=== PATIENT | female | born 1990 | race African-American/Black ===

== ENCOUNTER 2018-09-20 02:47 | Emergency (ER) | payer OTHER ==
[~2018-09-20] VITALS: Ht 167.6 cm; Wt 140.6 kg
[2018-09-20 03:06] LABS: URINE BILIRUBIN NEGATIVE (Negative); URINE BLOOD 3+ (Negative); URINE CLARITY CLEAR; URINE COLOR YELLOW; URINE GLUCOSE-RANDOM* NEGATIVE (Negative); URINE KETONES NEGATIVE (Negative); URINE LEUKOCYTES-REFLEX NEGATIVE (Negative); URINE NITRITE-REFLEX NEGATIVE (Negative); URINE PROTEIN (DIPSTICK) NEGATIVE (Negative); URINE SPECIFIC GRAVITY 1.015 (1.005-1.035); URINE UROBILINOGEN 0.2 E.U./dl (0.2-1.0)
[2018-09-20 03:25] LABS: SSA (PROTEIN CONFIRMATORY) TRACE (APPROX. 5) mg/dL (Negative)
[2018-09-20 03:26] LABS: BACTERIA-REFLEX None Seen /HPF (None Seen); CASTS None Seen /LPF (None Seen); CRYSTALS None Seen /LPF (None Seen); MUCUS 0-3 Light strn/LPF (None Seen); SQUAMOUS 0-3 Few /LPF (0-3); URINE WBC-REFLEX None Seen /HPF (0-5)
[2018-09-20 03:26] LABS: HEMATOCRIT 38.3 % (37.0-47.0); HEMOGLOBIN 12.6 gm/dL (12.0-15.0); MCH 25.8 pg (26.0-34.0); MCHC 32.8 g/dL (28.0-37.0); MCV 78.7 fL (80.0-100.0); RBC 4.87 mil/uL (4.20-5.00); RDW 15.7 % (10.5-14.5); WBC 11.3 thou/uL (4.0-11.0)
[2018-09-20 03:36] LABS: CALCIUM 10.1 mg/dL (8.5-10.1); CREATININE 0.7 mg/dL (0.6-1.0); POTASSIUM 4.7 mmol/L (3.5-5.1)
[2018-09-20 03:41] LABS: ALBUMIN 3.4 g/dL (3.4-5.0); TOTAL BILIRUBIN 0.3 mg/dL (<0.1-1.0); TOTAL PROTEIN 7.6 g/dL (6.4-8.2)
[2018-09-20] MEDS ORDERED: PEPCID20 MG PO (05:34)
[2018-09-20] MEDS ORDERED: ZOFRAN4 MG PO (05:34)
[2018-09-20] MEDS ORDERED: NORCO 5-325 TA1 EACH PO (05:34)
[2018-09-20 05:38] VITALS: BP 133/73
== END 2018-09-20 05:47 | disposition home or self-care (01) ==
LOC: ER 02:47
PROVIDERS: Student in an Organized Health Care Education/Training Program
DX: K80.20 Calculus of gallbladder without cholecystitis without obstruction (principal); R11.2 Nausea with vomiting, unspecified

== ENCOUNTER → 2018-10-15 | Outpatient (CLI) | payer OTHER ==
[~2018-10-15] MED LIST: NORCO 5-325 TA1 EACH PO; PEPCID20 MG PO; ZOFRAN4 MG PO
--- NOTE | 2018-10-18 19:49 | SLE ---
[facility] [place] [address] POLYSOMNOGRAPHY STUDY Name: ESTEFANI VERONICA Room #: [facility].#: [id number] Admission: 10/15/18 ������������������ Attend Phys: Landon Luna MD Discharge: ������������������ Date of : 86 Report #: [id number] THIS REPORT FOR: //name// CC: Landon Parra MD DATE OF SERVICE: 10/15/2018 ATTENDING PHYSICIAN: Dr. Jeronimo Parra. The patient is 28 years old who weighs 357 pounds with a BMI of 57.6. The patient had a home sleep study previously and was found to have a moderate TAYLOR at an AHI of 25 per hour, with a supine AHI of 26 per hour. The patient also had moderate nocturnal hypoxia. As a result, the patient was referred for in-lab CPAP titration study. During the night study, the patient spent 401 minutes in bed and slept for 371 minutes with an excellent sleep efficiency of 92%. Sleep latency was 21.7 minutes, with a REM latency of 250. Sleep architecture showed normal N1 and N2 sleep , increase N3 sleep and reduce REM sleep. PLM index was 6.6/hr without any significant EEG arousals. EKG monitoring revealed an average heart rate of 81 beats / min. No sustained arrthymias seen. The patient was started on a CPAP pressure of 6 cm of water and titrated up to 15 cm water. At the final pressure of 15 cm water, the patient slept for 40 minutes, 3 minutes of REM sleep. No supine sleep was seen. The patient's AHI was reduced to 0 per hour. At a lower pressure, the patient also did very well. At 14 cm water, the patient had 51 minutes of sleep with both supine REM sleep seen. The patient's AHI was 2.3 per hour and oxygen saturation remained above 91%. This was the optimum therapeutic pressure. IMPRESSION: 1. Sleep apnea diagnosed by home sleep study. 2. No clinically significant periodic limb movements. RECOMMENDATIONS: 1. CPAP at 14 cm water completely eliminated the patient's sleep apnea and should be used on a nightly basis. 2. Follow up in 4-6 weeks to assess compliance with CPAP and to document clinical improvement. 3. Weight loss is strongly advised. [facility] [address] [place] [address] POLYSOMNOGRAPHY STUDY Name: ESTEFANI VERONICA Room #: [facility].#: [id number] Admission: 10/15/18 ������������������ Attend Phys: Landon Luna MD Discharge: ������������������ Date of : 86 Report #: [id number] 4. Avoid [employer] depressants. 5. Cautioned regarding driving until symptoms of sleep apnea resolve with the use of CPAP. ��������������������������������������������� <ELECTRONICALLY SIGNED> ���������������������������������������� By: Landon Luna MD ��������������������������������������������� 10/18/18 1949 [id number] Landon Luna MD /nt
== END ==
LOC: SLEEPLAB 16:55
DX: G47.33 Obstructive sleep apnea (adult) (pediatric) (principal)

== ENCOUNTER 2018-12-16 20:28 | Inpatient (IN) | payer OTHER ==
[~2018-12-16] VITALS: Ht 167.6 cm; Wt 165.4 kg
[2018-12-16 20:29] VITALS: BP 170/86
[2018-12-16 21:11] LABS: ABSOLUTE NEUTROPHILS 7.2 thou/uL (1.4-8.2); BASOPHILS 0.6 % (0.0-2.0); EOSINOPHILS 0.6 % (0.0-3.0); HEMATOCRIT 36.5 % (37.0-47.0); HEMOGLOBIN 11.6 gm/dL (12.0-15.0); LYMPHOCYTES 23.6 % (24.0-44.0); MCH 25.5 pg (26.0-34.0); MCHC 31.8 g/dL (28.0-37.0); MCV 80.1 fL (80.0-100.0); MONOCYTES 9.2 % (1.0-8.0); PLATELET COUNT 284 thou/uL (150-400); RBC 4.56 mil/uL (4.20-5.00); WBC 10.9 thou/uL (4.0-11.0)
[2018-12-16 21:20] LABS: CALCIUM 10.1 mg/dL (8.5-10.1); CREATININE 0.8 mg/dL (0.6-1.0); POTASSIUM 3.7 mmol/L (3.5-5.1)
[2018-12-16 21:26] LABS: ALBUMIN 3.3 g/dL (3.4-5.0); TOTAL BILIRUBIN 0.7 mg/dL (<0.1-1.0); TOTAL PROTEIN 7.5 g/dL (6.4-8.2)
[2018-12-16 23:12] LABS: URINE BILIRUBIN NEGATIVE (Negative); URINE BLOOD 3+ (Negative); URINE CLARITY CLEAR; URINE COLOR YELLOW; URINE GLUCOSE-RANDOM* NEGATIVE (Negative); URINE KETONES 3+ (Negative); URINE LEUKOCYTES-REFLEX TRACE (Negative); URINE NITRITE-REFLEX NEGATIVE (Negative); URINE PROTEIN (DIPSTICK) NEGATIVE (Negative)
[2018-12-16 23:43] LABS: CASTS None Seen /LPF (None Seen); MUCUS None Seen strn/LPF (None Seen); SQUAMOUS 0-3 Few /LPF (0-3); URINE WBC-REFLEX 0-5 Rare /HPF (0-5)
[2018-12-16 23:44] LABS: BACTERIA-REFLEX None Seen /HPF (None Seen); CRYSTALS None Seen /LPF (None Seen); URINE RBC 3-10 Few /HPF (0-2)
[2018-12-17 01:32] VITALS: BP 138/70
[2018-12-17 05:43] VITALS: BP 137/75
[2018-12-17 08:17] VITALS: BP 121/72
[2018-12-17 17:29] VITALS: BP 140/63
[2018-12-17 19:36] VITALS: BP 130/49
[2018-12-18 04:16] VITALS: BP 137/70
[2018-12-18 08:00] VITALS: BP 140/73
[2018-12-18] MEDS ORDERED: AUGMENTIN400 MG/53 PO (11:54)
[2018-12-18 13:10] VITALS: BP 140/73
== END 2018-12-18 14:00 | disposition home or self-care (01) | DRG 205 ==
LOC: ER 20:28 → 4E 12-17 00:37 → EROBS 12-17 00:37 → 4E 12-17 01:25
PROVIDERS: Nurse Practitioner; ADMIT Internal Medicine
DX: J95.89 Other postprocedural complications and disorders of respiratory system, not elsewhere classified (principal); J69.0 Pneumonitis due to inhalation of food and vomit; Z68.43 Body mass index [BMI] 50.0-59.9, adult; Y83.8 Other surgical procedures as the cause of abnormal reaction of the patient, or of later complication, without mention of misadventure at the time of the procedure; R13.10 Dysphagia, unspecified; E86.0 Dehydration; G47.33 Obstructive sleep apnea (adult) (pediatric); E66.01 Morbid (severe) obesity due to excess calories; Z90.49 Acquired absence of other specified parts of digestive tract; Z79.899 Other long term (current) drug therapy
CPT/HCPCS: 10084

== ENCOUNTER 2020-06-26 00:22 | Emergency (ER) | payer OTHER ==
[~2020-06-26] VITALS: Ht 170.2 cm; Wt 122.5 kg
[~2020-06-26 00:22] MED LIST changes: +AUGMENTIN400 MG/53 PO
[2020-06-26] MEDS ORDERED: MOBIC15 MG PO (01:08)
[2020-06-26 01:22] VITALS: BP 136/78
== END 2020-06-26 01:23 | disposition home or self-care (01) ==
LOC: ER 00:22
DX: M25.511 Pain in right shoulder (principal); Z90.49 Acquired absence of other specified parts of digestive tract

== ENCOUNTER 2020-11-24 01:15 | Emergency (ER) | payer OTHER ==
[~2020-11-24] VITALS: Ht 170.2 cm; Wt 123.8 kg
[~2020-11-24 01:15] MED LIST changes: +MOBIC15 MG PO
[2020-11-24 02:07] LABS: URINE BILIRUBIN NEGATIVE (Negative); URINE BLOOD NEGATIVE (Negative); URINE CLARITY CLEAR; URINE COLOR YELLOW; URINE GLUCOSE-RANDOM* NEGATIVE (Negative); URINE KETONES NEGATIVE (Negative); URINE LEUKOCYTES-REFLEX NEGATIVE (Negative); URINE NITRITE-REFLEX NEGATIVE (Negative); URINE PROTEIN (DIPSTICK) NEGATIVE (Negative); URINE UROBILINOGEN 0.2 E.U./dl (0.2-1.0)
[2020-11-24 04:13] LABS: ABSOLUTE NEUTROPHILS 4.9 thou/uL (1.4-8.2); BASOPHILS 0.5 % (0.0-2.0); EOSINOPHILS 1.2 % (0.0-3.0); HEMATOCRIT 35.6 % (37.0-47.0); HEMOGLOBIN 11.3 gm/dL (12.0-15.0); LYMPHOCYTES 41.1 % (24.0-44.0); MCH 26.2 pg (26.0-34.0); MCHC 31.7 g/dL (28.0-37.0); MCV 82.5 fL (80.0-100.0); MONOCYTES 9.7 % (1.0-8.0); PLATELET COUNT 248 thou/uL (150-400); POLYS 47.5 % (36.0-66.0); RBC 4.32 mil/uL (4.20-5.00); RDW 13.8 % (10.5-14.5); WBC 10.3 thou/uL (4.0-11.0)
[2020-11-24 04:16] LABS: CALCIUM 9.3 mg/dL (8.5-10.1); CREATININE 0.8 mg/dL (0.6-1.0); POTASSIUM 4.2 mmol/L (3.5-5.1)
[2020-11-24 04:22] LABS: ALBUMIN 3.3 g/dL (3.4-5.0); TOTAL BILIRUBIN 0.1 mg/dL (0.2-1.0); TOTAL PROTEIN 6.9 g/dL (6.4-8.2)
[2020-11-24] MEDS ORDERED: ZOFRAN ODT4 MG PO (04:39)
[2020-11-24] MEDS ORDERED: PYRIDIUM200 MG PO (04:39)
[2020-11-24] MEDS ORDERED: LEVSIN0.125 MG PO (04:39)
[2020-11-24 05:10] VITALS: BP 125/66
== END 2020-11-24 05:13 | disposition home or self-care (01) ==
LOC: ER 01:15
PROVIDERS: Emergency Medicine
DX: R35.0 Frequency of micturition (principal); R10.32 Left lower quadrant pain; Z90.49 Acquired absence of other specified parts of digestive tract; Z79.899 Other long term (current) drug therapy

== ENCOUNTER 2021-03-04 18:56 | Emergency (ER) | payer OTHER ==
[~2021-03-04] VITALS: Ht 170.2 cm; Wt 117.9 kg
[~2021-03-04 18:56] MED LIST changes: +LEVSIN0.125 MG PO; +PYRIDIUM200 MG PO; +ZOFRAN ODT4 MG PO
[2021-03-04 19:18] LABS: BE(vivo) -1.1 mmol/L (-2 to +3); HCO3 21.3 mmol/L (22.0-26.0); PCO2 29.2 mmHg (35.0-45.0); PO2 114.2 mmHg (80.0-100.0); pH 7.481 (7.360-7.450); sO2 98.5 % (92.0-98.0)
[2021-03-04 20:06] LABS: ABSOLUTE NEUTROPHILS 2.5 thou/uL (1.4-8.2); BASOPHILS 0.5 % (0.0-2.0); HEMATOCRIT 39.1 % (37.0-47.0); HEMOGLOBIN 12.6 gm/dL (12.0-15.0); MCH 25.9 pg (26.0-34.0); MCHC 32.2 g/dL (28.0-37.0); MCV 80.2 fL (80.0-100.0); MONOCYTES 18.1 % (1.0-8.0); PLATELET COUNT 237 thou/uL (150-400); POLYS 43.4 % (36.0-66.0); RBC 4.88 mil/uL (4.20-5.00); RDW 14.2 % (10.5-14.5); WBC 5.7 thou/uL (4.0-11.0)
[2021-03-04 20:15] LABS: CALCIUM 9.2 mg/dL (8.5-10.1); CREATININE 0.8 mg/dL (0.6-1.0); POTASSIUM 3.5 mmol/L (3.5-5.1)
[2021-03-04 20:21] LABS: ALBUMIN 3.4 g/dL (3.4-5.0); TOTAL BILIRUBIN 0.3 mg/dL (0.2-1.0); TOTAL PROTEIN 7.5 g/dL (6.4-8.2)
[2021-03-04 21:49] VITALS: BP 112/71
--- NOTE | 2021-03-05 07:39 | EKG ---
[address] [address] ELECTROCARDIOGRAM REPORT Name: ESTEFANI VEORNICA [id number] Admission: 03/04/21 Attend Phys: Discharge: 03/04/21 Date of : [birth year] Report #: [id number] [facility] ED Test Date: 2021-03-04 Test Time: 19:49:33 Pat Name: ESTEFANI VERONICA Department: Room: Gender: F W[employer] Driver: : 1990 Requested By: Rosa Kinney Order Number: [id number] MD: Ronaldo Rouse Measurements Intervals Hector Rate: 77 P: 43 CT: 161 QRS: 35 QRSD: 90 T: 3 QT: 365 QTc: 414 Interpretive Statements Sinus rhythm Probable left atrial enlargement No previous ECG available for comparison Electronically Signed On 03-05-2021 7:39:35 CDT by Ronaldo Rouse [email or web address] <ELECTRONICALLY SIGNED> By: Ronaldo Rouse MD, [facility] 03/05/21 0739 [id number] Ronaldo Rouse MD, FACC /EPI
== END 2021-03-04 21:55 | disposition home or self-care (01) ==
LOC: ER 18:56
PROVIDERS: Physician Assistant
DX: R19.7 Diarrhea, unspecified (principal); R11.2 Nausea with vomiting, unspecified; Z20.822 Contact with and (suspected) exposure to COVID-19

== ENCOUNTER 2021-09-15 02:51 | Emergency (ER) | payer OTHER ==
[~2021-09-15] VITALS: Ht 170.2 cm; Wt 127.0 kg
[2021-09-15] MEDS ORDERED: PRENATAL PO (02:59)
[2021-09-15 04:09] LABS: URINE BILIRUBIN NEGATIVE (Negative); URINE BLOOD 3+ (Negative); URINE CLARITY SL CLOUDY; URINE COLOR RED; URINE GLUCOSE-RANDOM* NEGATIVE (Negative); URINE KETONES NEGATIVE (Negative); URINE LEUKOCYTES-REFLEX NEGATIVE (Negative); URINE NITRITE-REFLEX NEGATIVE (Negative); URINE PROTEIN (DIPSTICK) TRACE (Negative); URINE SPECIFIC GRAVITY 1.025 (1.005-1.035); URINE UROBILINOGEN 0.2 E.U./dl (0.2-1.0)
[2021-09-15 04:19] LABS: BACTERIA-REFLEX 1-9 Few /HPF (None Seen); CASTS None Seen /LPF (None Seen); CRYSTALS None Seen /LPF (None Seen); MUCUS 0-3 Light strn/LPF (None Seen); SQUAMOUS 4-10 Moderate /LPF (0-3); URINE RBC >20 Many /HPF (NONE SEEN); URINE WBC-REFLEX None Seen /HPF (0-5)
[2021-09-15 05:19] LABS: ABSOLUTE NEUTROPHILS 2.1 thou/uL (1.4-8.2); BASOPHILS 0.7 % (0.0-2.0); EOSINOPHILS 2.8 % (0.0-3.0); HEMOGLOBIN 11.6 gm/dL (12.0-15.0); LYMPHOCYTES 39.3 % (24.0-44.0); MCHC 31.4 g/dL (28.0-37.0); MCV 82.7 fL (80.0-100.0); MONOCYTES 16.3 % (1.0-8.0); PLATELET COUNT 252 thou/uL (150-400); POLYS 40.9 % (36.0-66.0); RBC 4.47 mil/uL (4.20-5.00); RDW 13.8 % (10.5-14.5); WBC 5.1 thou/uL (4.0-11.0)
[2021-09-15 05:29] LABS: CALCIUM 9.5 mg/dL (8.5-10.1); CREATININE 0.7 mg/dL (0.6-1.0); POTASSIUM 3.5 mmol/L (3.5-5.1)
[2021-09-15 06:37] VITALS: BP 151/101
== END 2021-09-15 06:25 | disposition home or self-care (01) ==
LOC: ER 02:51
PROVIDERS: Student in an Organized Health Care Education/Training Program
DX: O46.8X1 Other antepartum hemorrhage, first trimester (principal); O03.9 Complete or unspecified spontaneous abortion without complication; Z3A.08 8 weeks gestation of pregnancy; Z79.899 Other long term (current) drug therapy